=== PATIENT | female | born 1990 | race Hispanic/Latino ===

== ENCOUNTER 2018-10-13 13:22 | Emergency (ER) | payer SELFPAY ==
[2018-10-13] MEDS ORDERED: DEXAMETHASONE 4 MG/ML VIAL IM ONE (15:00)
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
== END 2018-10-13 15:38 | disposition home or self-care (01) ==
LOC: ER 13:22
DX: M62.830 Muscle spasm of back (principal)
CPT/HCPCS: 96372; 99283